=== PATIENT | male | born 1985 | race Caucasian/White ===

== ENCOUNTER 2025-04-08 15:19 | Emergency (ER) | payer OTHER, SELFPAY ==
--- NOTE | 2025-04-08 15:22 | ECG_ITS ---
Test Date: 2025-04-08 15:32:44 Measurements Intervals [place] Rate: 63 P: 42 [place]: 162 QRS: 6 QRSD: 102 T: 7 QT: 405 QTc: 416 Interpretive Statements SINUS RHYTHM EARLY PRECORDIAL R/S TRANSITION BASELINE WANDER- II, III, V1 BORDERLINE ECG No previous ECG available for comparison Electronically Signed On 04-09-2025 14:32:59 CDT by Kayden Claros D.O.
--- NOTE | 2025-04-08 15:26 | ED_ITS ---
HPI - Chest Pain General Chief Complaint: Chest Pain Stated Complaint: ache in chest Time Seen by Provider: 04/08/25 15:20 Source: patient Mode of arrival: ambulatory Limitations: no limitations History of Present Illness HPI narrative: Patient is a 39-year-old male who presents with left chest pain that has been intermittent for 3 days. Patient is not able to get into PCP until May as he is new to the area and has to establish care. Denies any numbness, tingling or weakness to extremities. Denies any jaw pain. Reports the pain has been more consistent and noticeable today. CT had some shortness of breath 3 days ago but has not had any since. Denies any headaches, vision changes or lightheadedness. Does state he has had an increase amount of stress at work and personal life. 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 Denies any change in diet or or caffeine intake. Her patient did just start Ozempic again 5 days ago. Related Data Allergies Allergy/AdvReac Type Severity Reaction Status Date / Time No Known Allergies Allergy Verified 04/08/25 15:50 Review of Systems Review of Systems: All systems reviewed & are unremarkable except as noted in HPI and below Constitutional: Constitutional: Denies body ache(s), Denies chills, Denies fatigue, Denies fever(s), Denies headache(s), Denies malaise and Denies weakness Eyes: Eyes: Denies blurry vision, Denies irritation and Denies loss of vision ENT: Denies otalgia, Denies headache(s), Denies nasal discharge, Denies sinus pain and Denies sore throat Cardiovascular: Cardiovascular: Reports chest pain, Denies irregular heart rhythm and Denies dyspnea Respiratory: Respiratory: Denies dyspnea Gastrointestinal: Gastrointestinal: Denies abdominal pain, Denies melena, Denies hematochezia, Denies diarrhea, Denies nausea and Denies vomiting Musculoskeletal: Musculoskeletal: Denies back pain, Denies myalgias and Denies arthralgias Integumentary/Breasts: Skin/Breast: Denies pruritus and Denies rash Neurologic: Denies headache(s), Denies loss of vision and Denies weakness Psychiatric: Psychiatric: Reports no additional psychiatric complaints Endocrine: Endocrine: Denies fatigue PMFSH Comments At time of signature, agree with nursing past medical, surgical, social and family history. There is no relevant family history pertinent to the presenting complaint. Exam Const: General: cooperative, healthy appearing, comfortable, no acute distress and well nourished Nutritional Appearance: well nourished Orientation/consciousness: patient oriented x3 Limitations: no limitations HENMT: Head: normal to inspection, normocephalic and atraumatic Ears: hearing grossly normal bilaterally and external ears normal Face/Nose/Sinus: Normal external nose present, normal facial exam and face symmetric Face and sinus: normal facial exam and face symmetric Mouth: Yes lip normal Eyes: General: appearance normal, both eyes and all related structures Alignment and Position: alignment normal and position normal Periorbital: periorbital findings normal Eyelids: eyelids normal Pupils: Equal, round and reactive pupils present EOM: EOMs intact bilaterally Neck: Neck: normal visual inspection, full ROM and supple Chest: Chest palpation & inspection: normal inspection of the chest Resp: Effort & Inspection: normal respiratory effort and able to speak in complete sentences Auscultation: clear to auscultation bilaterally Cardio: Rate: regular rate Rhythm: regular rhythm Heart sounds: S1 normal heart sound present and S2 normal heart sound present GI: Inspection: normal to inspection Skin: General skin exam: normal color and no rashes or lesions noted Neuro: General: patient oriented x3 and moves all extremities Cranial nerves: Yes Equal, round and reactive pupils present Cognition (Neuro): normal cognition Speech: normal speech Gait exam (Neuro): Normal gait present Motor exam (neuro): 5/5 motor strength present throughout, Normal motor muscle tone present throughout and Motor abnormalities not present Sensory Exam: normal sensation Extrem: General: normal to inspection, full ROM and no edema Psych: Appearance: grossly normal and well kempt Mental Status: mental status grossly normal Speech and movement: Normal speech and movement present Affect: normal affect Attitude: cooperative Thought process: Normal thought process present Course Course Emergency Course: Patient is aware of diagnosis, understands and agrees to treatment plan. Anticipatory guidance given. Patient agrees to follow-up as directed and is aware of reasons to seek care at the emergency department. Portions of this record may have been created with voice recognition software Level of Care: Express Care Visit Vital Signs Vital signs: Vital Signs Temperature 36.6 C 04/08/25 15:37 Pulse Rate 65 04/08/25 15:37 Respiratory Rate 16 04/08/25 15:37 Blood Pressure 152/92 H 04/08/25 15:37 Pulse Oximetry 99 04/08/25 15:37 Temperature 36.6 C 04/08/25 15:37 Pulse Rate 67 04/08/25 15:56 Respiratory Rate 18 04/08/25 15:56 Blood Pressure 140/88 04/08/25 15:56 Pulse Oximetry 99 04/08/25 15:37 Reviewed MDM - Chest Pain MDM Narrative Medical decision making narrative: Chest pain is not reproducible on palpation. Patient describes chest pain is just the dull discomfort that is constantly present. Discussed limitations of urgent care setting to diagnose and assess chest pain. Recommended transfer to emergency department for further workup and evaluation including labs and possible imaging. Patient declines transfer and is signing AMA paperwork. Did discuss red flag symptoms of worsening chest pain, movement of chest pain in to back arm or jaw, shortness of breath, any lightheadedness, vision changes his these need to be assessed medially in the emergency department. Patient states he thinks it is just increased amount of stress along with working outside in the heat and possible dehydration along with restarting Ozempic. Patient does have PCP appointment scheduled however it is not until mid May. Patient states of symptoms continue to worsen he will go to the emergency department. Differential Diagnosis Differential diagnosis: Likely stable angina, atypical chest pain and chest pain ECG Data EKG #1: Attestation: I personally reviewed and interpreted this ECG as follows: Prior ECG tracings: not available for review Interpretation: EKG: VR[63], MA int[162], QRS dur:[102], QT/QTc: [405/412], PRT axes: [42 6 7], Avg RR:[947], QTcB: [416], QTcF: [412] No ST elevation or depression EKG Interpretation: normal rate and sinus rhythm Discharge Plan Discharge Clinical Impression: Chest pain Patient Disposition: Left Against Medical Advice Condition: Stable Instructions: Chest Pain (ED) Additional Instructions: He presents today with chest pain that has been more persistent than last few days. If it continues to become more persistent, starts moving down your arm, up to your jaw or to your back please go straight to the emergency department. If you have any signs of shortness of breath, headache, vision changes or lightheadedness go to the emergency department. We were unable to rule out other causes of your chest pain. Your EKG did not show signs of acute heart attack. Try to increase hydration and decrease stress. For pain, you may take: Tylenol 650-1000mg by mouth every 4-6 hours. Do not exceed 4000mg in 24 hours. Advil (Ibuprofen) 600 mg by mouth every 6 hours. Do not exceed 2400mg in 24 hours. 8 AM: Tylenol 11 AM: Ibuprofen 2 PM: Tylenol 5 PM: Ibuprofen 8 PM: Tylenol 11 PM: Ibuprofen 2 AM: Tylenol 5 AM: Ibuprofen Your blood pressure was elevated above 120/80 today at Urgent Care. This puts you above the threshold for follow up visit with a primary care provider. High blood pressure does not usually cause any symptoms, however it may lead to kidney failure, stroke, heart disease just to name a few if untreated . Many people are anxious when seeing a provider or nurse. As a result, you are not diagnosed with hypertension at this time unless your blood pressure is persistently high at two office visits at least one week apart. Some things that can help lower blood pressure are lifestyle modifications, such as light exercise, decreased salt in diet, and weight loss. It is important to follow up with a PCP about this within 1 week. Patient Language: Maltese Follow-up/Referrals: Sonu,Devyn [Other] - 3 Days Rajeev Naranjo MD [Physician] - 3 Days ([facility]) Stand Alone Forms: Work/School Release IP Time of Disposition: 15:54
[2025-04-08 15:37] VITALS: BP 152/92; PULSE 65; RESP 16; TEMP 36.6; O2SAT 99
[2025-04-08 15:56] VITALS: BP 140/88; PULSE 67; RESP 18
== END 2025-04-08 15:56 | disposition left against medical advice (07) ==
PROVIDERS: Emergency Provider Nurse Practitioner Family
DX: R07.9 Chest pain, unspecified (principal)
CPT/HCPCS: 93005; 99213; G0463